=== PATIENT | male | born 1960 | race Caucasian/White ===

== ENCOUNTER 2016-12-20 12:26 | Inpatient (IN) | payer MEDICAID ==
[~2016-12-20] VITALS: Ht 180.3 cm; Wt 55.8 kg
[~2016-12-20 12:26] MED LIST: CARV25TA55 PO; DOXY100T2 PO; GLYB2.5T4 PO; HYDR-4039 PO; LISI-600 PO; NOR10 PO
[2016-12-20 13:10] VITALS: BP 162/93; PULSE 102; RESP 18; TEMP 97; O2SAT 100
--- NOTE | 2016-12-20 13:51 | NUR ---
Patient to ER bed 03 to gown for evaluation. Side rails up. Report given to Sangeetha.
--- NOTE | 2016-12-20 13:54 | NUR ---
ER at bedside examining patient.
[2016-12-20] MEDS ORDERED: NACL 0.9% 1,000 ML IV SCH (13:57)
[2016-12-20] MEDS ORDERED: PIPERACILLIN/TAZO 3.38 GM in D5W 50 ML IV ONE (14:00)
[2016-12-20] MEDS ORDERED: VANCOMYCIN HCL 1,000 MG in D5W 250 ML IV ONE (14:00)
--- NOTE | 2016-12-20 14:18 | NUR ---
Pt brought by daughter , A&Ox4, pt has Hx of sroke causing slurred speech, weakness noted on R side of body, pt c/o redness and necrosis on L bigtoe, foul odor, denies pain at the site, cap refill <3, R toee amputation noted,pt follows commands, denie chets pain.
[2016-12-20 14:28] LABS: BASOPHILS % (AUTO) 0.2 % (0.0-2.0); EOSINOPHILS # (AUTO) 0.1 K/uL (0.0-0.4); EOSINOPHILS % (AUTO) 0.5 % (0.0-4.0); HEMATOCRIT 34.7 % (36-54); HEMOGLOBIN 11.8 g/dL (14.0-18.0); MEAN CORPUSCULAR HEMOGLOBIN 31 pg (27-31); MEAN CORPUSCULAR HGB CONC 34 % (32-36); MEAN CORPUSCULAR VOLUME 91 fL (79.0-98.0); MONOCYTES # (AUTO) 0.8 K/uL (0.0-1.0); MONOCYTES % (AUTO) 6.9 % (1.7-9.3); NEUTROPHILS # (AUTO) 10.4 K/uL (1.8-7.7); NEUTROPHILS % (AUTO) 84.4 % (40.0-70.0); PLATELET COUNT (AUTO) 345 K/uL (130-430); RED BLOOD CELL COUNT(AUTO) 3.81 MIL/uL (4.2-6.2); RED CELL DISTRIBUTION WIDTH 11.9 % (9.0-15.0); WHITE BLOOD COUNT (AUTO) 12.3 K/uL (4.8-10.8)
[2016-12-20] MEDS ORDERED: PIPERACILLIN/TAZOBACTAM 3.375 GM/VIAL (ZOSYN) IV ONE (14:37)
[2016-12-20 14:45] LABS: PROTHROMBIN TIME 11.2 SECS (9.5-12.5)
[2016-12-20 15:20] LABS: CALCIUM 9.5 mg/dL (8.4-11.0); CREATININE 1.21 mg/dL (0.55-1.30); POTASSIUM 4.5 mmol/L (3.5-5.1)
[2016-12-20 15:25] LABS: TOTAL BILIRUBIN 0.6 mg/dL (0.0-1.0)
[2016-12-20 15:26] LABS: ALBUMIN 3.7 g/dL (3.4-4.8); TOTAL PROTEIN, SERUM 9.4 g/dL (6.4-8.3)
--- NOTE | 2016-12-20 16:06 | NUR ---
Patient will be admitted to care of Dr. Turner. Admitted to [facility] IP unit.
--- NOTE | 2016-12-20 16:06 | NUR ---
call placed to [facility] charge for bed placement states she will call back
--- NOTE | 2016-12-20 16:12 | NUR ---
Medication reconciliation completed with information provided by daughter. Any prior medication reconciliation on file was reviewed and corrected.
--- NOTE | 2016-12-20 16:56 | NUR ---
2nd call placed for bed placement
--- NOTE | 2016-12-20 17:26 | NUR ---
Spoke with [facility] charge states no room available at this time, pt, family, and primary nurse will be notified
--- NOTE | 2016-12-20 18:13 | NUR ---
Pt on stable condition, denies pain at this time, VS WNL, pt follows commands, skin pink and warm,A&Ox4.
--- NOTE | 2016-12-20 18:45 | NUR ---
Note lizz in EDM - 12/20/16 at 1846 by [email or web address] Patient will be admitted to care of Dr Johnson . Admitted to medsurg unit. Will go to room 103A Belongings list completed. Summary report printed. Report given to Alex.
--- NOTE | 2016-12-20 18:45 | NUR ---
Patient will be admitted to care of Dr Johnson . Admitted to medsur unit. Will go to room 103A Belongings list completed. Summary report printed. Report given to Alex. Addendum: 12/24/16 at 1746 by [email or web address] Report given to Admitting MARIAM
[2016-12-20 18:48] LABS: BILIRUBIN,URINE NEGATIVE (NEGATIVE); BLOOD, URINE NEGATIVE (NEGATIVE); CLARITY/URINE CLEAR (CLEAR); COLOR,URINE YELLOW (YELLOW); GLUCOSE,URINE NEGATIVE (NEGATIVE); KETONES,URINE TRACE (NEGATIVE); LEUKOCYTE ESTERASE ,URINE NEGATIVE (NEGATIVE); NITRITE, URINE NEGATIVE (NEGATIVE); PH,URINE 5.5 (5.0-8.0); PROTEIN URINE TRACE (NEGATIVE); UROBILINOGEN,URINE 0.2 (0.2-1.0)
--- NOTE | 2016-12-20 18:51 | NUR ---
ADMISSION: Received from ER on a gurney with the diagnosis of cellulitis. Patient is alert and oriented. Left foot anterior foot is noted with redness and tenderness. Dark scab noted on the tip of the left big toe. Denies pain. Patient states he uses walker at home. Patient has catarract on both eyes. Oriented to room routine. Call light within reach.
[2016-12-20 19:03] LABS: BACTERIA,URINE FEW /HPF (None Seen); RBC,URINE NONE SEEN /HPF (0-3); WBC,URINE 0-3 /HPF (0-3)
[2016-12-20 19:04] LABS: FINE GRANULAR CASTS,URINE 0-10 /LPF (None Seen); MUCUS,URINE None Seen /LPF (None Seen)
[2016-12-20] MEDS ORDERED: ACETAMINOPHEN 325 MG TABLET PO PRN (19:45)
--- NOTE | 2016-12-20 19:56 | NUR ---
CONSULTATION PAGED REASON FOR CONSULTATION:CELLULITIS WAS CONSULT CALLED?Y PERSON WHO WAS NOTIFIED:INO CONSULTING PHYSICIAN:CHARO GAONA ACTUARY CLERK SPECIALTY:INFECTIOUS DISEASE ACTUARY CLERK PHONE NUMBER:[phone]
--- NOTE | 2016-12-20 19:58 | NUR ---
CONSULTATION PAGED REASON FOR CONSULTATION:GANGREEN OF LEFT BIG TOE WAS CONSULT CALLED?Y PERSON WHO WAS NOTIFIED:BRIJESH CONSULTING PHYSICIAN:LUCITA ELLIOTT FIRE PREVENTION RESEARCH ENGINEER SPECIALTY:SURGEON FIRE PREVENTION RESEARCH ENGINEER PHONE NUMBER:[phone]
[2016-12-20 20:00] VITALS: BP 176/103; PULSE 101; RESP 18; TEMP 99.1; O2SAT 97
[2016-12-20] MEDS ORDERED: VANCOMYCIN HCL 1 GM/NS PREMIX 250 ML IV ONE (20:00)
--- NOTE | 2016-12-20 20:00 | NUR ---
Initial Notes Received patient laying in bed, alert, awake, oriented. Patient in no acute distress or pain. Breathing even and unlabored on room air. Patient exhibiting elevated BP, Dr. Turner on unit and made aware, will see patient. Dark color scab noted to left big toe, left foot red. Amputations noted right toes and right thumb. IV site to right hand #20, patent/clean/dry. Educated patient on use of call light for assistance and fall precautions, patient verbalized understanding. Call light in hand, will continue to monitor for safety and changes.
[2016-12-20] MEDS: cloNIDine HCL 0.1 MG TABLET PO PRN (20:41)
[2016-12-20] MEDS: INSULIN REGULAR, HUMAN 100 UNITS/ML, 10 ML VIAL (novoLIN R) SUBCUT PRN (20:50)
[2016-12-20 22:00] VITALS: BP 155/92; PULSE 90
--- NOTE | 2016-12-20 22:00 | NUR ---
Rounds Patient resting in bed with eyes closed, easily aroused upon nurse entering room. Patient denies any acute distress or pain at this time. Breathing even and unlabored. Call light in hand, fall precautions in place. Will continue to monitor.
[2016-12-21] VITALS: BP 149/80; PULSE 79; RESP 16; TEMP 99.6; O2SAT 98
--- NOTE | 2016-12-21 | NUR ---
Rounds Patient resting in bed, easily aroused. Patient denies any acute distress or pain at this time, breathing even and unlabored. Photo taken of patient's left toe and charted, patient tolerated well. Call light in hand, will continue to monitor.
--- NOTE | 2016-12-21 02:00 | NUR ---
Rounds Patient resting in bed with eyes closed. No acute distress noted, breathing even and unlabored. Call light in hand, fall precautions in place. Will continue to monitor for changes and safety.
[2016-12-21 04:00] VITALS: BP 150/84; PULSE 77; RESP 16; TEMP 97.8; O2SAT 97
--- NOTE | 2016-12-21 04:15 | NUR ---
Rounds Patient resting in bed with eyes closed. No acute distress noted, breathing even and unlabored. Call light in hand, will continue to monitor.
--- NOTE | 2016-12-21 06:31 | NUR ---
Closing Notes Patient resting in bed, easily aroused. Patient denies any acute distress or pain at this time. Breathing even and unlabored. IV site patent/clean/dry, no S/S infection/infiltration noted. Needs addressed throughout shift. Call light in hand, fall precautions in place. Will continue to monitor for changes and safety, and endorse all patient care/needs to oncoming nurse.
[2016-12-21 08:22] LABS: BASOPHILS % (AUTO) 0.4 % (0.0-2.0); EOSINOPHILS # (AUTO) 0.2 K/uL (0.0-0.4); EOSINOPHILS % (AUTO) 1.8 % (0.0-4.0); HEMATOCRIT 29.3 % (36-54); LYMPHOCYTES % (AUTO) 11.6 % (20.5-51.5); MEAN CORPUSCULAR HEMOGLOBIN 31 pg (27-31); MEAN CORPUSCULAR HGB CONC 34 % (32-36); MEAN CORPUSCULAR VOLUME 91 fL (79.0-98.0); MONOCYTES % (AUTO) 10.9 % (1.7-9.3); NEUTROPHILS # (AUTO) 6.6 K/uL (1.8-7.7); NEUTROPHILS % (AUTO) 75.3 % (40.0-70.0); PLATELET COUNT (AUTO) 294 K/uL (130-430); RED BLOOD CELL COUNT(AUTO) 3.22 MIL/uL (4.2-6.2); RED CELL DISTRIBUTION WIDTH 11.8 % (9.0-15.0); WHITE BLOOD COUNT (AUTO) 8.8 K/uL (4.8-10.8)
[2016-12-21 08:48] LABS: CALCIUM 9.2 mg/dL (8.4-11.0); CREATININE 1.21 mg/dL (0.55-1.30)
[2016-12-21] MEDS: hydrALAZINE HCL 25 MG TABLET PO SCH (08:59)
[2016-12-21] MEDS: ENOXAPARIN SODIUM 40 MG/0.4 ML SYRINGE SUBCUT SCH (08:59)
[2016-12-21] MEDS: amLODIPine BESYLATE 10 MG TABLET PO SCH (09:00)
--- NOTE | 2016-12-21 09:00 | NUR ---
received awake and in no c/o discomfort.bs with no coverage noted.lt leg cellulitis noted and necrotic lt toe.ra sats 97%.taking diet well.continue to monitor.call marlow in place
--- NOTE | 2016-12-21 09:34 | NUR ---
Nutrition Update Zbigniew Scale 18 noted. Pt admitted for cellulitis. Diet: [facility] BMI: 17.3 kg/m2 RD to follow per nutrition care standards.
[2016-12-21 12:38] VITALS: BP 190/95; PULSE 91; RESP 16; TEMP 98.6; O2SAT 100
[2016-12-21] MEDS: cloNIDine HCL 0.1 MG TABLET PO PRN ×2 (13:12→20:08)
[2016-12-21] MEDS: INSULIN REGULAR, HUMAN 100 UNITS/ML, 10 ML VIAL (novoLIN R) SUBCUT PRN ×2 (13:32→20:15)
[2016-12-21] MEDS: VANCOMYCIN HCL 1 GM/NS PREMIX 250 ML IV SCH (14:00)
[2016-12-21 16:14] VITALS: BP 167/89; PULSE 81; RESP 16; TEMP 98.9; O2SAT 99
[2016-12-21 20:00] VITALS: BP 166/94; PULSE 86; RESP 18; TEMP 98.6; O2SAT 97
--- NOTE | 2016-12-21 20:00 | NUR ---
Initial Notes Received patient laying in bed with eyes closed, easily aroused. Patient alert, oriented, speech slurred/garbled. Patient denies any acute distress or pain. Breathing even and unlabored on room air. IV site patent/clean/dry. Wound to left toe, open to air. Vital signs stable. Educated patient on use of call light for assistance and fall precautions, patient verbalized understanding. Call light in hand, will continue to monitor.
[2016-12-21] MEDS: CEFEPIME 1 GM in D5W 50 ML IV SCH (20:08)
--- NOTE | 2016-12-21 22:00 | NUR ---
Rounds Patient resting in bed, awake. Patient denies any acute distress or pain at this time. Breathing even and unlabored. IV site patent/clean/dry. Assisted patient with toileting needs. Linen changed. Needs addressed. Call light in hand. Will continue to monitor.
[2016-12-22] VITALS: BP 136/79; PULSE 72; RESP 17; TEMP 97.9; O2SAT 96
--- NOTE | 2016-12-22 | NUR ---
Rounds Patient resting in bed with eyes closed, easily aroused. Patient denies any acute distress or pain. Breathing even and unlabored. Patient denies any needs at this time. Call light in hand, fall precautions in place. Will continue to monitor.
--- NOTE | 2016-12-22 02:20 | NUR ---
Rounds Patient resting in bed with eyes closed. No acute distress noted, breathing even and unlabored. Call light in hand, fall precautions in place. Will continue to monitor.
--- NOTE | 2016-12-22 04:00 | NUR ---
Rounds Patient resting in bed, awake. Patient denies any acute distress or pain at this time. Breathing even and unlabored. Toileting needs addressed. Call light in hand. Will continue to monitor.
[2016-12-22 04:21] VITALS: BP 142/74; PULSE 68; RESP 17; TEMP 98.6; O2SAT 98
--- NOTE | 2016-12-22 06:26 | NUR ---
Closing Notes Patient resting in bed with eyes closed, easily aroused to name. Patient denies any acute distress or pain at this time. Breathing even and unlabored. IV site patent/clean/dry, no S/S infection/infiltration noted. Needs addressed throughout shift. Call light in hand, fall precautions in place. Will continue to monitor for changes and safety, and endorse all patient care/needs to oncoming nurse.
[2016-12-22 07:51] VITALS: BP 184/91; PULSE 89; RESP 18; TEMP 98.4; O2SAT 99
--- NOTE | 2016-12-22 08:00 | NUR ---
HANDOFF REPORT, VITAL SIGNS AND ASSESSMENT COMPLETE.
[2016-12-22] MEDS: amLODIPine BESYLATE 10 MG TABLET PO SCH (09:10)
[2016-12-22] MEDS: ENOXAPARIN SODIUM 40 MG/0.4 ML SYRINGE SUBCUT SCH (09:11)
[2016-12-22] MEDS: hydrALAZINE HCL 25 MG TABLET PO SCH (09:11)
[2016-12-22] MEDS: CEFEPIME 1 GM in D5W 50 ML IV SCH ×2 (09:12→22:34)
--- NOTE | 2016-12-22 10:00 | NUR ---
PATIENT REQUESTS ASSIST WITH USING BEDPAN. AFTERWARDS REQUESTS TO USE URINAL. PERICARE AND REPOSITIONING WITH LEFT SIDE LYING POSITION. BRUISE NOTED ON BUTTOCKS.
[2016-12-22] MEDS: INSULIN REGULAR, HUMAN 100 UNITS/ML, 10 ML VIAL (novoLIN R) SUBCUT PRN (11:52)
--- NOTE | 2016-12-22 12:00 | NUR ---
NEEDS OF PATIENT MET. LUNCH MEAL TOLERATED WELL. BLOOD GLUCOSE CHECK AND COVERAGE PER ORDERS.
[2016-12-22 12:32] VITALS: BP 155/77; PULSE 87; RESP 16; TEMP 98.2; O2SAT 97
[2016-12-22] MEDS ORDERED: SEVOFLURANE 15 MIN GAS INH ONE (14:00)
[2016-12-22] MEDS ORDERED: PROPOFOL 200MG/ 20ML VIAL (DIPRIVAN) IV ONE (14:00)
[2016-12-22] MEDS ORDERED: fentaNYL CITRATE/PF 100 MCG/2 ML AMP ONE (14:00)
[2016-12-22] MEDS ORDERED: NS 1000 ML BAG IV ONE (14:00)
[2016-12-22] MEDS ORDERED: WATER FOR IRRIGATION,STERILE 1,000 ML IRRIG.SOLN IR ONE (14:00)
[2016-12-22] MEDS ORDERED: MIDAZOLAM HCL 5 MG/5 ML VIAL ONE (14:00)
--- NOTE | 2016-12-22 14:00 | NUR ---
ROUNDS TO PATIENT. DISCUSSED SURGERY, SIGNING CONSENT, EVENING CHECK OF BLOOD GLUCOSE, AND POSSIBLE TIME IN THE OPERATING ROOM TODAY. VERBALIZES UNDERSTANDING. CONSENT SIGNATURE OBTAINED.
[2016-12-22 14:03] VITALS: Ht 180.3 cm; Wt 55.8 kg
[2016-12-22] MEDS: VANCOMYCIN HCL 1 GM/NS PREMIX 250 ML IV SCH (14:15)
--- NOTE | 2016-12-22 16:20 | NUR ---
PATIENT GIVEN CHG BATH AND CLONIDINE FOR ELEVATED BLOOD PRESSURE. PATIENT WANTED TO CALL HIS SISTER AND REQUEST ITEMS FOR HIS PERSONAL HYGIENE.
[2016-12-22] MEDS: cloNIDine HCL 0.1 MG TABLET PO PRN (16:38)
[2016-12-22 16:45] VITALS: BP 170/98; PULSE 96; RESP 20; TEMP 99.7; O2SAT 99
--- NOTE | 2016-12-22 17:55 | NUR ---
PATIENT TO OPERATING ROOM FOR LEFT GREAT TOE AMPUTATION.
[2016-12-22] MEDS ORDERED: NACL 0.9% 1,000 ML IV SCH (18:42)
[2016-12-22] MEDS ORDERED: MORPHINE 2 MG/ML INJ. SYRINGE IVP PRN ×3 (18:45)
[2016-12-22] MEDS ORDERED: ONDANSETRON HCL 4 MG/2 ML VIAL IVP PRN (18:45)
--- NOTE | 2016-12-22 19:35 | NUR ---
Handoff report with walking rounds to bedside. Patient is in or. Described elevation in bp related to infection and consistent with cva history of patient and father.
[2016-12-22 20:00] VITALS: BP 136/79; PULSE 97; RESP 20; TEMP 97.8; O2SAT 98
--- NOTE | 2016-12-22 20:47 | NUR ---
Received patient from OR left toe amputation , dressing intact patient awake skin dry warm is verbal , able to wiggle left foot on command HOB elevated 02 SAT 96 % .
--- NOTE | 2016-12-22 22:45 | NUR ---
BSG accu check 137 MG dl sips of water given & tolerated / .
--- NOTE | 2016-12-22 22:59 | NUR ---
Hourly Rounding patient resting assist encourage position change is verbally responsive assist as needed / .
[2016-12-23 00:43] VITALS: BP 140/82; PULSE 98; RESP 19; TEMP 98.6; O2SAT 100
--- NOTE | 2016-12-23 03:28 | NUR ---
Patient using bedside urinal as needed clear yellow urine is noted wnl / .
[2016-12-23 04:00] VITALS: BP 115/65; PULSE 70; RESP 16; TEMP 97.9; O2SAT 100
--- NOTE | 2016-12-23 05:03 | NUR ---
Patient awake assist for position change , comfort measures implemented , kept clean and dry as needed / .
--- NOTE | 2016-12-23 05:03 | NUR ---
Motor movement left foot on command , dressing CDI , no active bleeding noted , skin dry warm / .
[2016-12-23 07:37] LABS: BASOPHILS % (AUTO) 0.6 % (0.0-2.0); EOSINOPHILS # (AUTO) 0.3 K/uL (0.0-0.4); EOSINOPHILS % (AUTO) 4.5 % (0.0-4.0); HEMOGLOBIN 10.1 g/dL (14.0-18.0); LYMPHOCYTES # (AUTO) 1.2 K/uL (1.0-5.5); LYMPHOCYTES % (AUTO) 16.3 % (20.5-51.5); MEAN CORPUSCULAR HEMOGLOBIN 32 pg (27-31); MEAN CORPUSCULAR HGB CONC 35 % (32-36); MEAN CORPUSCULAR VOLUME 91 fL (79.0-98.0); MONOCYTES # (AUTO) 0.7 K/uL (0.0-1.0); MONOCYTES % (AUTO) 8.9 % (1.7-9.3); NEUTROPHILS # (AUTO) 5.4 K/uL (1.8-7.7); NEUTROPHILS % (AUTO) 69.7 % (40.0-70.0); PLATELET COUNT (AUTO) 283 K/uL (130-430); RED CELL DISTRIBUTION WIDTH 11.6 % (9.0-15.0); WHITE BLOOD COUNT (AUTO) 7.6 K/uL (4.8-10.8)
[2016-12-23 07:38] LABS: ALBUMIN 2.8 g/dL (3.4-4.8); CALCIUM 8.7 mg/dL (8.4-11.0); POTASSIUM 3.4 mmol/L (3.5-5.1); TOTAL BILIRUBIN 0.4 mg/dL (0.0-1.0); TOTAL PROTEIN, SERUM 7.9 g/dL (6.4-8.3)
--- NOTE | 2016-12-23 08:00 | NUR ---
Rounds to patient to remove from bedpan. No bm at this time. Patient vital signs within baseline. Assessment is within baseline. Dressing is clean, dry and intact on left great toe. Patient neurovascular checks within normal limits.
[2016-12-23 08:04] VITALS: BP 177/89; PULSE 88; RESP 18; TEMP 98.2; O2SAT 100
[2016-12-23] MEDS: amLODIPine BESYLATE 10 MG TABLET PO SCH (09:14)
[2016-12-23] MEDS: hydrALAZINE HCL 25 MG TABLET PO SCH (09:15)
[2016-12-23] MEDS: ENOXAPARIN SODIUM 40 MG/0.4 ML SYRINGE SUBCUT SCH (09:15)
[2016-12-23] MEDS: CEFEPIME 1 GM in D5W 50 ML IV SCH ×2 (09:15→21:33)
--- NOTE | 2016-12-23 10:00 | NUR ---
Rounds to patient bedside. Needs met at this time. Repositioning and assistance with emptying urinal.
--- NOTE | 2016-12-23 12:00 | NUR ---
Patient blood glucose check. No coverage indicated at this time. Will continue to monitor. Sister Qing called and says she will send the patient's other sister and his daughter this afternoon to visit. She was excited to hear the pt was doing well.
[2016-12-23 12:01] VITALS: BP 196/97; PULSE 68; RESP 18; TEMP 98.3; O2SAT 99
--- NOTE | 2016-12-23 14:00 | NUR ---
Assist with removal of bedside table. Patient says he was calling to have his tray removed. Yelling at caption writer.
[2016-12-23] MEDS: VANCOMYCIN HCL 1 GM/NS PREMIX 250 ML IV SCH (14:43)
--- NOTE | 2016-12-23 16:00 | NUR ---
Family , sister and daughter, at patient bedside. Sister discussed with patient taking his blood pressure and blood sugar seriously so he is a candidate for further surgery for his cataracts. Patient maintained he will do so. Sister and daughter discussed with surgeon in depth regarding the procedure and further intervention not indicated unless the patient takes his health seriously. The patient dressing is clean, dry and intact. His needs are met at this time.
[2016-12-23 16:55] VITALS: BP 167/81; PULSE 85; RESP 18; TEMP 99.5; O2SAT 97
--- NOTE | 2016-12-23 17:51 | NUR ---
Nutrition Education RD provided nutrition education on MNT for diabetes; please see teaching notes.
[2016-12-23] MEDS: INSULIN REGULAR, HUMAN 100 UNITS/ML, 10 ML VIAL (novoLIN R) SUBCUT PRN (18:20)
--- NOTE | 2016-12-23 18:22 | NUR ---
Patient given prn coverage insulin as per sliding scale 4 units. Blood glucose is 224 preprandial.
[2016-12-23] MEDS: cloNIDine HCL 0.1 MG TABLET PO PRN (18:34)
[2016-12-23 20:42] VITALS: BP 154/88; PULSE 84; RESP 20; TEMP 98.5; O2SAT 96
--- NOTE | 2016-12-23 21:12 | NUR ---
Patient awake verbally responsive assist for position change , HOB elevated skin dry warm chest movement symmetrical / .
--- NOTE | 2016-12-23 22:26 | NUR ---
BSG accu check 134 mg dl no s/sx of insulin reaction noted sips of water tolerating / .
[2016-12-24 00:46] VITALS: BP 140/88; PULSE 84; RESP 17; TEMP 99.3; O2SAT 97
--- NOTE | 2016-12-24 01:08 | NUR ---
Hourly Rounding patient awake assist for position change skin dry warm no Diabetic reactions noted / .
[2016-12-24 04:00] VITALS: BP 135/82; PULSE 78; RESP 16; TEMP 98.9; O2SAT 98
--- NOTE | 2016-12-24 04:26 | NUR ---
Reposition & Turning off loading with pillows used comfort measures implemented procedure tolerated / .
--- NOTE | 2016-12-24 07:30 | NUR ---
Vital signs and assist repositioning with student for breakfast. Patient in dangling position. Food cut by technical publications writer. Patient prefers spoon when eating.
[2016-12-24 08:10] VITALS: BP 156/86; PULSE 74; RESP 16; TEMP 99.1
--- NOTE | 2016-12-24 09:00 | NUR ---
Rounds to patient. Needs met at this time. Med pass due.
[2016-12-24] MEDS: CEFEPIME 1 GM in D5W 50 ML IV SCH ×2 (10:09→21:41)
[2016-12-24] MEDS: amLODIPine BESYLATE 10 MG TABLET PO SCH (10:10)
[2016-12-24] MEDS: hydrALAZINE HCL 25 MG TABLET PO SCH (10:11)
[2016-12-24] MEDS: ENOXAPARIN SODIUM 40 MG/0.4 ML SYRINGE SUBCUT SCH (10:11)
--- NOTE | 2016-12-24 11:03 | NUR ---
Rounds to patient. Neurovascular check within normal limits. Clean, dry, and intact dressing.
[2016-12-24 11:13] VITALS: BP 165/87; PULSE 78; RESP 16; TEMP 98.2; O2SAT 98
--- NOTE | 2016-12-24 11:54 | NUR ---
ROUNDS TO PATIENT. RESTING AT THIS TIME.
[2016-12-24] MEDS: INSULIN REGULAR, HUMAN 100 UNITS/ML, 10 ML VIAL (novoLIN R) SUBCUT PRN ×2 (12:35→21:44)
[2016-12-24] MEDS: cloNIDine HCL 0.1 MG TABLET PO PRN (12:49)
[2016-12-24] MEDS: VANCOMYCIN HCL 1 GM/NS PREMIX 250 ML IV SCH (13:58)
--- NOTE | 2016-12-24 14:00 | NUR ---
Rounds to patient. Repositioned with heels floating. Patient surgeon assist with dressing change. Clean, dry and intact fresh dressing placed. Neurovascular checks within normal limits.
[2016-12-24 14:02] VITALS: BP 158/76; PULSE 76; RESP 16; TEMP 97.4; O2SAT 98
--- NOTE | 2016-12-24 16:25 | NUR ---
CDL PROGRAM COORDINATOR assisting with patient. Refreshing water and giving warm blankets.
--- NOTE | 2016-12-24 18:16 | NUR ---
Patient rounds. Handoff report preparation for noc nurse.
[2016-12-24 20:33] VITALS: BP 149/77; PULSE 75; RESP 18; TEMP 98.2; O2SAT 96
--- NOTE | 2016-12-24 21:15 | NUR ---
Patient awake verbally Responsive , on room air 02 SAT 96 % chest movement shallow also symmetrical / .
--- NOTE | 2016-12-25 | NUR ---
MAXIPIME 1 GM IVPB administer no allergic reaction skin rash free / .
[2016-12-25 00:53] VITALS: BP 132/76; PULSE 80; RESP 17; TEMP 97.6; O2SAT 98
--- NOTE | 2016-12-25 02:39 | NUR ---
Hourly Rounding patient resting this hour assist for position change tolerated / .
--- NOTE | 2016-12-25 02:41 | NUR ---
Patient resting this hour no DIABETIC reactions chest movement symmetrical / .
[2016-12-25 04:17] VITALS: BP 128/74; PULSE 78; RESP 16; TEMP 98.7; O2SAT 98
--- NOTE | 2016-12-25 05:51 | NUR ---
Reposition & Turning off loading , kept clean and dry as needed fall precautions helpful / .
[2016-12-25 07:22] LABS: BASOPHILS % (AUTO) 0.3 % (0.0-2.0); EOSINOPHILS # (AUTO) 0.3 K/uL (0.0-0.4); EOSINOPHILS % (AUTO) 4.2 % (0.0-4.0); HEMATOCRIT 28.4 % (36-54); HEMOGLOBIN 9.6 g/dL (14.0-18.0); LYMPHOCYTES # (AUTO) 1.5 K/uL (1.0-5.5); MEAN CORPUSCULAR HEMOGLOBIN 31 pg (27-31); MEAN CORPUSCULAR HGB CONC 34 % (32-36); MEAN CORPUSCULAR VOLUME 92 fL (79.0-98.0); MONOCYTES # (AUTO) 0.7 K/uL (0.0-1.0); MONOCYTES % (AUTO) 9.4 % (1.7-9.3); NEUTROPHILS # (AUTO) 5.2 K/uL (1.8-7.7); NEUTROPHILS % (AUTO) 67.1 % (40.0-70.0); PLATELET COUNT (AUTO) 311 K/uL (130-430); RED BLOOD CELL COUNT(AUTO) 3.07 MIL/uL (4.2-6.2); RED CELL DISTRIBUTION WIDTH 11.7 % (9.0-15.0); WHITE BLOOD COUNT (AUTO) 7.7 K/uL (4.8-10.8)
[2016-12-25 07:38] VITALS: BP 167/88; PULSE 83; RESP 18; TEMP 98.6; O2SAT 97
[2016-12-25 07:43] LABS: CREATININE 1.21 mg/dL (0.55-1.30); POTASSIUM 4.3 mmol/L (3.5-5.1)
--- NOTE | 2016-12-25 08:00 | NUR ---
INITIAL NOTES RECEIVED PATIENT ON BED ASLEEP.BREATHING EVEN AND UNLABORED.NO ACUTE DISTRESS.DRESSING TO LEFT FOOT DRY CLEAN AND INTACT;NO SIGNS AND SYMPTOMS OF ACTIVE BLEEDING.NO ACUTE DISTRESS.IVF AT [facility];NO SIGNS AND SYMPTOMS OF INFILTRATION.SAFETY AND FALL PRECAUTIONS IN PLACE.CALL LIGHT WITHIN REACH
[2016-12-25] MEDS: CEFEPIME 1 GM in D5W 50 ML IV SCH (08:20)
[2016-12-25] MEDS: hydrALAZINE HCL 25 MG TABLET PO SCH (08:21)
[2016-12-25] MEDS: ENOXAPARIN SODIUM 40 MG/0.4 ML SYRINGE SUBCUT SCH (08:21)
[2016-12-25] MEDS: amLODIPine BESYLATE 10 MG TABLET PO SCH (08:22)
[2016-12-25] MEDS: cloNIDine HCL 0.1 MG TABLET PO PRN (10:36)
[2016-12-25] MEDS: INSULIN REGULAR, HUMAN 100 UNITS/ML, 10 ML VIAL (novoLIN R) SUBCUT PRN ×2 (11:34→17:15)
[2016-12-25 12:00] VITALS: BP 137/69; PULSE 88; RESP 21; TEMP 98; O2SAT 99
--- NOTE | 2016-12-25 12:45 | NUR ---
NOTES LUNCH SERVED;ASSISTED BY GLASS RIBBON MACHINE OPERATOR WITH FEEDING;TOLERATED WELL
[2016-12-25] MEDS: VANCOMYCIN HCL 1 GM/NS PREMIX 250 ML IV SCH (13:57)
--- NOTE | 2016-12-25 13:58 | NUR ---
DISCHARGE PLANNING Faxed SNF referral to [facility]. Will follow up on bed availability. Addendum: 12/25/16 at 1433 by Jesusita ROJAS Spoke with Kenny in admitting patient accepted assigned to room 35A RN to report , bed available anytime. DC order to SNF today. JEAN-PAUL Wood spoke with family. Called [facility] placed [facility] transport on will call. Pending call back from RN to coordinate time for transport. Addendum: 12/25/16 at 1646 by Nina Marmolejo RN >> ph# [phone] and informed the pt.'s sister, Qing Rome that the pt. is accepted to [facility] and will be transferred to room #35A this eveninig at 530 pm. Also left the unit phone number for call back should she have any questions. Addendum: 12/25/16 at 1647 by Jesusita Kasper DP Called [facility] arranged [facility] transport pharmacy picking tech soonest available at 8:30pm. Called [facility] ambulance arranged soonest available transport pharmacy picking tech at 5:15-5:30pm.
--- NOTE | 2016-12-25 15:17 | NUR ---
NOTES PATIENT ON BED ASLEEP;NO ACUTE DISTRESS
[2016-12-25 16:00] VITALS: BP 145/75; PULSE 80; RESP 20; TEMP 99.2; O2SAT 96
[2016-12-25 16:12] VITALS: BP 137/69; PULSE 88; RESP 21; TEMP 98; O2SAT 99
--- NOTE | 2016-12-25 16:45 | NUR ---
NOTES IV SITE LEAKING;CHECKED AND ASSESSED SITE;WITH SLIGHT REDNESS;NO SWELLING;NO COMPLAIN OF PAIN OR DISCOMFORT TO SITE;REMOVED IV CATHETER;PRESSURE DRESSING APPLIED
--- NOTE | 2016-12-25 17:50 | NUR ---
PT TRANSFERRED Transfer packet with Transfer Orders and Medication Reconciliation form given to EMT with report. Exitcare provided. [facility] ID band removed, replaced with ID band with pt's name and . IV catheter removed, intact and dressing applied, no active bleeding. All belongings sent with patient. Patient left floor via gurney escorted by EMT in no distress.
--- NOTE | 2016-12-25 17:55 | NUR ---
NOTES CALLED [facility];SPOKE WITH MILADY(RN);REPORT GIVEN
== END 2016-12-25 17:50 | DRG 314 ==
LOC: SED 12:26 → SMU 16:04
PROVIDERS: ADMIT Family Medicine; ATTEND Family Medicine
PROC: 0Y6Q0Z3 Detachment at Left 1st Toe, Low, Open Approach (ICD-10-PCS; principal; 2016-12-22 17:45)
DX: E11.69 Type 2 diabetes mellitus with other specified complication (principal); E43 Unspecified severe protein-calorie malnutrition; E11.52 Type 2 diabetes mellitus with diabetic peripheral angiopathy with gangrene; L03.116 Cellulitis of left lower limb; M86.8X7 Other osteomyelitis, ankle and foot; I10 Essential (primary) hypertension; Z86.73 Personal history of transient ischemic attack (TIA), and cerebral infarction without residual deficits; Z79.4 Long term (current) use of insulin
CPT/HCPCS: 36415; 71010; 80048; 80053; 81000-TC; 82962; 83036; 83605; 85025; 85610-TC; 87040-TC; 87081; 88305; 88311; 93923; 96365; 96367; 97116-GP; 99285; J0692; J1650; J1815; J2250; J2543; J2704; J3010; J3370; J7030; J7040; J7060

== ENCOUNTER 2017-01-16 13:46 | Emergency (ER) | payer MEDICAID ==
[2016-12-22 14:03] VITALS: Ht 180.3 cm; Wt 63.5 kg
[~2017-01-16] VITALS: Ht 180.3 cm; Wt 63.5 kg
[2017-01-16 13:50] VITALS: BP 147/99; PULSE 96; RESP 16; TEMP 97.9; O2SAT 99
--- NOTE | 2017-01-16 14:00 | NUR ---
Patient to ER bed 3 to gown for evaluation. Side rails up. Report given to LIZ BECERRA.
--- NOTE | 2017-01-16 14:10 | NUR ---
Patient in stable condition, alert and oriented x4, sister and daughter present. Patient states is here because family is worried about new wounds noticed 2 days ago. Patient had left great toe amputation 2 weeks ago, old suture site clean dry and intact, dry scabbing noted, no bleeding/drainage, no swelling, slight red discoloration around site. Lateral side of left foot has dark brown scab noted with redness around site, no drainage/bleeding noted. Left second toe has open red area, no drainage/bleeding noted. Right lateral side of foot has open red area with scabbing, no bleeding/drainage noted. No odor to any sites. Sister states that all areas beside amputation site were not present before amputation. No other complaints/injuries per patient or noted.
--- NOTE | 2017-01-16 14:15 | NUR ---
Bilateral pedal pulses present and strong, able to wiggle all toes freely, no numbness or tingling per patient, sensation present, capillary refill less than three secs. No known injury to feet per patient or family.
--- NOTE | 2017-01-16 14:30 | NUR ---
Dr. Cody at bedside
--- NOTE | 2017-01-16 15:25 | NUR ---
PT.S DAUGHTER HERE AT BEDSIDE THIS NURSE ASKED FOR HER TO SIGN ACI'S AND SHE STATED "I'M NOT SIGNING THAT" AND REFUSED TO SINGNED AND LEFTTHE ED, STATED HER AUNT WANTED TO TALK WITH US
--- NOTE | 2017-01-16 15:52 | NUR ---
Patient's sister informed Dr. Cody that she does not want to take patient home, wants him in placement. Dr. Cody informed sister that we can not do placement in facility from ER. Patient's sister began yelling at Dr. Cody and left to go to Dr. Turner's office. Patient remains in ER.
--- NOTE | 2017-01-16 16:24 | NUR ---
Janae social science research assistant came and spoke with patient and daughter (sister not present) about situation. Janae stated that she can arrange home health for wound care if Dr. Cody orders. Dr. Cody informed.
--- NOTE | 2017-01-16 16:45 | NUR ---
Dr. Cody does not want to order home health care. Janae social sciences chair is going to arrange home health care through Dr. Turner. Janae also states that she is going to file APS report due to situation.
--- NOTE | 2017-01-16 16:51 | NUR ---
Social Service Note: RURAL CARRIER was called to ED to meet with pt and pt's family. RURAL CARRIER met with pt and pt's dtr, Shara ([phone]) in ED hallway. Blaise states that he was recently discharged from [facility]. Blaise states that no home health care was set up for him to continue his wound care. Pt also states that he has not scheduled a follow up appointment with his physician. RURAL CARRIER encouraged pt to make a follow up appointment with his PCP to discuss his wound and possible home health care. RURAL CARRIER alerted charge nurse that if ED physician wrote an order for home health care RURAL CARRIER could arrange services. ED staff states that pt's sister, Akila ([phone]) was stating that she was refusing to take pt back home. Pt lives at home with his elderly mother. RURAL CARRIER waited for pt's sister but she had left the ED. RURAL CARRIER provided pt's dtr with information on In Home Supportive Services; RURAL CARRIER encouraged pt's dtr to contact [facility] as soon as possible to start process and have pt evaluated to received support in the home. RURAL CARRIER has also contacted Adult Protective Services via the online reporting tool; APS report number is: [id number]. RURAL CARRIER will remain available for support and will follow up as needed.
--- NOTE | 2017-01-16 16:54 | NUR ---
Patient and family given written and verbal discharge instructions and verbalizes understanding. ER MD discussed with patient and family the results and treatment provided. Patient in stable condition. ID arm band removed. Rx of keflex and bactrim given. Patient and family educated on pain management and to follow up with PMD. Pain Scale 0/10. Opportunity for questions provided and answered.
--- NOTE | 2017-01-16 16:54 | NUR ---
EMT with pt to discharge. Pt family states she is going to take him to dr campbell office right now
[2017-01-16 16:56] VITALS: BP 137/74; PULSE 90; RESP 16; TEMP 97.2; O2SAT 99
== END 2017-01-16 16:55 | disposition home or self-care (01) ==
LOC: SED 13:46
DX: Z48.01 Encounter for change or removal of surgical wound dressing (principal); L03.032 Cellulitis of left toe; E11.9 Type 2 diabetes mellitus without complications; I10 Essential (primary) hypertension; Z89.412 Acquired absence of left great toe; Z89.422 Acquired absence of other left toe(s); Z86.73 Personal history of transient ischemic attack (TIA), and cerebral infarction without residual deficits; Z91.013 Allergy to seafood; Z91.018 Allergy to other foods
CPT/HCPCS: 82962; 99283